=== PATIENT | male | born 1975 | race Caucasian/White ===

== ENCOUNTER 2020-04-08 17:15 | Emergency (ER) | payer OTHER ==
[~2020-04-08] VITALS: Ht 167.6 cm; Wt 78.6 kg
[2020-04-08] MEDS ORDERED: CEFAZOLIN 1,000 MG IM ONE (18:00)
[2020-04-08] MEDS ORDERED: L.E.T SOLUTION TP ONE (18:00)
[2020-04-08] MEDS ORDERED: LIDOCAINE 1%-EPI 1:100K, 20ML SQ ONE (18:00)
[2020-04-08] MEDS ORDERED: LIDOCAINE-MPF 1%, 5ML ONE ×2 (18:07→18:23)
--- NOTE | 2020-04-08 18:11 | NUR ---
Suture set up at bedside
[2020-04-08 18:37] VITALS: BP 121/80
--- NOTE | 2020-04-08 18:37 | NUR ---
Wound irrigated, pt tolerated well.
[2020-04-08] MEDS ORDERED: CEFAZOLIN 1,000 MG ONE (19:00)
[2020-04-08] MEDS ORDERED: LIDOCAINE-MPF 1%, 2ML ONE (19:01)
[2020-04-08] MEDS ORDERED: NEOSPORIN OINT. PKT 1 PACKET ONE (19:46)
--- NOTE | 2020-04-08 20:04 | NUR ---
task rn: pt d/c with d/c summary and scripts. all questions answered. pt ambulates to regsitration desk with steady gait for d/c home. pt verbalizes understanding of f/u instructions and antibiotic use. pt wound dressed per erp instructions by tech prior to d/c. pt denies any other needs pertaining to this visit.
== END 2020-04-08 20:07 | disposition home or self-care (01) ==
LOC: ED 18:48
DX: S61.511A Laceration without foreign body of right wrist, initial encounter (principal); F17.200 Nicotine dependence, unspecified, uncomplicated; W01.0XXA Fall on same level from slipping, tripping and stumbling without subsequent striking against object, initial encounter; Y93.89 Activity, other specified; Y92.098 Other place in other non-institutional residence as the place of occurrence of the external cause; Y99.8 Other external cause status
CPT/HCPCS: 12042; 73090; 96372; 99284; J0690